=== PATIENT | female | born 1990 | race African-American/Black ===

== ENCOUNTER 2020-12-07 22:54 | Emergency (ER) | payer OTHER ==
[2020-12-07 22:59] VITALS: BMI 30.1
[2020-12-08 01:07] LABS: BASO % 0.3 % (0-2.0); EOS % 1.2 % (0-4.5); HEMATOCRIT 36.6 % (32.4-45.2); HEMOGLOBIN 12.2 GM/dL (10.7-15.3); MCH 28.8 pg (25.7-33.7); MCHC 33.4 g/dl (32.0-36.0); MEAN CELL VOLUME 86.2 fl (80-96); MONO % 5.8 % (3.8-10.2); NEUT % 62.7 % (42.8-82.8); PLATELET COUNT 357 10^3/uL (134-434); RBC 4.25 M/mm3 (3.60-5.2); RDW 14.1 % (11.6-15.6)
[2020-12-08 01:14] LABS: CHLORIDE 106 mmol/L (98-107); SODIUM 139 mmol/L (136-145)
[2020-12-08 01:15] LABS: CALCIUM 9.2 mg/dL (8.5-10.1)
[2020-12-08 01:17] LABS: ALBUMIN 3.9 g/dl (3.4-5.0); ANION GAP 5 MMOL/L (8-16); BLOOD UREA NITROGEN 10.4 mg/dL (7-18); CO2 28 mmol/L (21-32); GLUCOSE,RANDOM 83 mg/dL (74-106)
[2020-12-08 01:20] LABS: CREATININE 0.8 mg/dL (0.55-1.3); SGOT/AST 17 U/L (15-37); SGPT/ALT 21 U/L (13-61)
[2020-12-08 01:21] LABS: BILIRUBIN,TOTAL 0.3 mg/dL (0.2-1); TOT PROT 7.5 g/dl (6.4-8.2)
[2020-12-08 01:22] LABS: ALK PHOS 136 U/L (45-117)
[2020-12-08 02:58] LABS: PH,URINE 5.5 (5.0-8.0); URINE APPEARANCE CLEAR; URINE BILIRUBIN NEGATIVE (NEGATIVE); URINE COLOR YELLOW; URINE GLUCOSE (UA) NEGATIVE (NEGATIVE); URINE KETONE NEGATIVE (NEGATIVE); URINE LEUK ESTERASE NEGATIVE (NEGATIVE); URINE NITRITE NEGATIVE (NEGATIVE); URINE PROTEIN NEGATIVE (NEGATIVE); URINE UROBILINOGEN 0.2 mg/dL (0.2-1.0)
[2020-12-08 03:19] VITALS: BP 132/76; PULSE 73; TEMP 98.3
== END 2020-12-08 03:19 | disposition home or self-care (01) ==
LOC: JER 22:54
DX: R10.31 Right lower quadrant pain (principal)
CPT/HCPCS: 36415; 74177-TC; 76830-TC; 80053; 81003; 82550; 82553; 84484; 84703; 85025; 87086; 93005; 93010; 99285-25